=== PATIENT | male | born 1990 | race Caucasian/White ===

== ENCOUNTER 2023-11-08 17:36 | Emergency (ER) | payer MEDICAID ==
[~2023-11-08] VITALS: Ht 172.7 cm; Wt 90.7 kg
[2023-11-08 17:54] VITALS: BP 160/110; PULSE 94; RESP 18; TEMP 97; O2SAT 98
[2023-11-08] MEDS ORDERED: LORazepam 1 MG TAB PO ONE (19:00)
[2023-11-08] MEDS ORDERED: ONDANSETRON 4 MG ODT PO ONE (19:00)
[2023-11-08] MEDS ORDERED: NIFE30TE5 PO (19:23)
[2023-11-08] MEDS ORDERED: LIB25 PO (19:23)
[2023-11-08] MEDS ORDERED: ONDA-188 PO (19:23)
[2023-11-08 20:01] VITALS: BP 130/80; PULSE 89; RESP 18; TEMP 98; O2SAT 98
== END 2023-11-08 20:01 | disposition home or self-care (01) ==
LOC: MED 17:36
DX: F10.239 Alcohol dependence with withdrawal, unspecified (principal); I10 Essential (primary) hypertension; Z76.0 Encounter for issue of repeat prescription; Z79.899 Other long term (current) drug therapy; Y90.9 Presence of alcohol in blood, level not specified
CPT/HCPCS: 99283; Q0162